=== PATIENT | male | born 1965 | race Caucasian/White ===

== ENCOUNTER 2018-11-25 17:25 | Emergency (ER) | payer MEDICARE, MEDICAID ==
[2018-11-25 19:17] VITALS: BP 148/82
--- NOTE | 2018-11-25 19:28 | UC ---
UC General HPI - HPI Summary HPI Summary: pt advised staff he fell while on a [place]mill [place] the [facility] earlier. he is c/o pain to R upper arm and shoulder. 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 - History of Current Complaint Chief Complaint: UCUpperExtremity Stated Complaint: RT ARM CONCERN S/P FALL Time Seen by Provider: 11/25/18 19:21 Hx Obtained From: Patient, Family/Dramatic Art Teacher Onset/Duration: Sudden Onset Pain Intensity: 8 Aggravating: abduction type movement. Associated Signs & Symptoms: Positive: Other - they deny any head, neck, back injury. - Allergy/Home Medications Allergies/Adverse Reactions: Allergies Allergy/AdvReac Type Severity Reaction Status Date / Time aspirin Allergy Unknown Unknown Verified 11/25/18 19:17 Reaction Details Home Medications: Home Medications Acetaminophen 2 tab PO Q4H PRN 11/25/18 [History Confirmed 11/25/18] Areds Eye Vitamin 1 tab BID 11/25/18 [History Confirmed 11/25/18] Ubidecarenone [Co Q-10] 100 mg PO DAILY 11/25/18 [History Confirmed 11/25/18] PMH/Surg Hx/FS Hx/Imm Hx - Additional Past Medical History Additional PMH: MR GI/ History: Gastroesophageal Reflux Psychological History: Anxiety - Surgical History Surgical History: None - Family History Known Family History: Positive: Non-Contributory - Social History Occupation: Disabled Alcohol Use: None Substance Use Type: None Smoking Status (MU): Light Every Day Tobacco Smoker Type: Cigarettes Amount Used/How Often: < 1/2 PPD Length of Time of Smoking/Using Tobacco: SEVERAL YRS Review of Systems All Other Systems Reviewed And Are Negative: No Constitutional: Negative: Fever Respiratory: Negative: Shortness Of Breath Gastrointestinal: Negative: Abdominal Pain Motor: Positive: Decreased ROM - RUE Musculoskeletal: Positive: Other: - R shoulder/upper arm pain. deny head, neck, back injury Neurological: Positive: Other - bead worker sewing denies AMS - Comments Additional Review of Systems Comments: LIMITED, HX MR Physical Exam Triage Information Reviewed: Yes Appearance: Well-Appearing Vital Signs: Initial Vital Signs Temp 98.4 F 11/25/18 19:10 Pulse 102 11/25/18 19:10 Resp 19 11/25/18 19:10 BP 148/82 11/25/18 19:10 Pulse Ox 100 11/25/18 19:10 Vital Signs Reviewed: Yes Eyes: Positive: Conjunctiva Clear ENT: Positive: Normal ENT inspection Neck: Positive: Supple, Nontender, No Lymphadenopathy, Other: - c-spine non tender Respiratory: Positive: Chest non-tender, Lungs clear, Normal breath sounds Cardiovascular: Positive: RRR, No Murmur Abdomen Description: Positive: Nontender Bowel Sounds: Positive: Present Musculoskeletal: Positive: Other: - Head, neck, back without deformity or tenderness. RUE without deformity. Tender over lateral shoulder and upper arm. shoulder has limited active and passive abduction due to pain. rest of arm non tender and rom intact. hand has gross s/v/m function. Neurological: Positive: Alert Psychological: Positive: Decreased Age Appropriate Behavior - due to MR but is unchanged from his baseline per bead worker sewing. Skin Exam: Normal Diagnostics - Radiology No standard instances Radiology Interpretation Completed By: ED Physician - R SHOULDER AND HUMERUS=NAD Course/Dx - Differential Dx - Multi-Symptom Differential Diagnoses: Other - NO RUE FX/DISLOCATION. LIMITED ABDUCTION AND PAIN WITH ATTEMPT THUS ROTATOR CUFF INJURY IS POSSIBLE. - Diagnoses Provider Diagnosis: Shoulder pain, right Discharge - Sign-Out/Discharge Documenting (check all that apply): Patient Departure All imaging exams completed and their final reports reviewed: No - Discharge Plan Condition: Stable Disposition: HOME Patient Education Materials: Rotator Cuff Injury (ED), Shoulder Pain (ED) Forms: *Gen. Provider Communication Referrals: Mark Brewster MD [Medical Doctor] - As Soon As Possible - Billing Disposition and Condition Condition: STABLE Disposition: Home - Attestation Statements Provider Attestation: Per institutional requirements, I have reviewed the chart, however, I was not consulted specifically or made aware of this patient by the midlevel provider. I did not personally evaluate, interact with , or disposition this patient.
--- NOTE | 2018-11-26 14:40 | UC ---
- EKG/XRAY/CT Xray Comments: wet read correct Course/Dx - Diagnoses Provider Diagnoses: Shoulder pain, right Discharge - Sign-Out/Discharge Documenting (check all that apply): Post-Discharge Follow Up All imaging exams completed and their final reports reviewed: Yes - Discharge Plan Condition: Stable Disposition: HOME Patient Education Materials: Rotator Cuff Injury (ED), Shoulder Pain (ED) Forms: *Gen. Provider Communication Referrals: Mark Brewster MD [Medical Doctor] - As Soon As Possible - Billing Disposition and Condition Condition: STABLE Disposition: Home
== END 2018-11-25 20:45 | disposition home or self-care (01) ==
LOC: UCCORT 17:25
DX: M25.511 Pain in right shoulder (principal); F17.210 Nicotine dependence, cigarettes, uncomplicated; Z88.8 Allergy status to other drugs, medicaments and biological substances
CPT/HCPCS: 99201; G0463

== ENCOUNTER 2018-12-02 19:07 | Emergency (ER) | payer MEDICARE, MEDICAID ==
[2018-12-02 20:48] VITALS: BP 132/82
--- NOTE | 2018-12-02 21:28 | UC ---
General HPI - HPI Summary HPI Summary: PER STAFF, PT SLID OUT OF BED LAST PM AND APPEARED UNINJURED. HE CONTINUED TO ACT FINE AFTER BUT THEN TODAY, C/O R SHOULDER PAIN. DATA INPUT CLERK NOTES NOT ALWAYS CONSISTENT IN THAT SOMETIMES FAVORS THE SHOULDER AND OTHER TIMES ACT NORMAL. - History of Current Complaint Chief Complaint: UCUpperExtremity Stated Complaint: RIGHT SHOULDER CONCERN Time Seen by Provider: 12/02/18 21:22 Hx Obtained From: Family/Order Checker Pain Intensity: 9 - Allergy/Home Medications Allergies/Adverse Reactions: Allergies Allergy/AdvReac Type Severity Reaction Status Date / Time aspirin Allergy Unknown Unknown Verified 12/02/18 20:39 Reaction Details lactose Allergy Unknown Verified 12/02/18 20:39 Reaction Details Home Medications: Home Medications Ubidecarenone [Coq10] 100 mg PO DAILY 12/02/18 [History Confirmed 12/02/18] PMH/Surg Hx/FS Hx/Imm Hx - Additional Past Medical History Additional PMH: MR GI/ History: Gastroesophageal Reflux Psychological History: Anxiety - Surgical History Surgical History: None - Family History Known Family History: Positive: Non-Contributory - Social History Occupation: Disabled Lives: Assisted Living Alcohol Use: None Substance Use Type: None Smoking Status (MU): Light Every Day Tobacco Smoker Type: Cigarettes Amount Used/How Often: < 1/2 PPD Length of Time of Smoking/Using Tobacco: SEVERAL YRS Review of Systems All Other Systems Reviewed And Are Negative: No Constitutional: Negative: Fever Skin: Negative: Rash Musculoskeletal: Positive: Decreased ROM, Other: - R SHOULDER PAIN Physical Exam Triage Information Reviewed: Yes Appearance: Well-Appearing Vital Signs: Initial Vital Signs Temp 99 F 12/02/18 20:43 Pulse 84 12/02/18 20:43 Resp 22 12/02/18 20:43 BP 132/82 12/02/18 20:43 Pulse Ox 100 12/02/18 20:43 Vital Signs Reviewed: Yes Eyes: Positive: Conjunctiva Clear ENT: Positive: Normal ENT inspection Neck: Positive: Supple, Nontender, No Lymphadenopathy, Other: - C-SPINE NON TENDER Respiratory: Positive: Chest non-tender, Lungs clear Cardiovascular: Positive: RRR Abdomen Description: Positive: Nontender Musculoskeletal: Positive: Other: - HEAD ATRAUMATIC. BACK IS NON TENDER. RUE: NO GROSS DEFORMITY, SWELLING OR DISCOLORATION. NON TENDER. PASSIVE FLEXION/ EXTENSION/ABDUCTION LIMITED DO TO C/O PAIN. HAND HAS GROSS S/V/M FUNCTION. Neurological: Positive: Alert Skin Exam: Normal Diagnostics - Radiology No standard instances Radiology Interpretation Completed By: Radiologist - R shoulder=scapular fracture Course/Dx - Course Course Of Treatment: HX, PE AND XRAY RESULTS D/W DR ADKINS, [facility] [place] [facility]. HE LOOKED AT THE XRAYS. HE REQUEST SLING AND F/U WITH HIM THIS SATURDAY IN [facility]. - Diagnoses Provider Diagnosis: Scapular fracture Discharge - Sign-Out/Discharge Documenting (check all that apply): Patient Departure All imaging exams completed and their final reports reviewed: No - Discharge Plan Condition: Stable Disposition: HOME Patient Education Materials: Scapular Fracture (ED) Forms: *Gen. Provider Communication Referrals: Cy Adkins MD [Medical Doctor] - Additional Instructions: CALL THE OFFICE OF DR ADKINS IN THE AM OF 12/03/18 AND MAKE A FOLLOW UP APPOINTMENT TO BE SEEN IN [facility] THIS COMING SATURDAY-PER DR ADKINS. LILIAN AT ALL TIMES - Billing Disposition and Condition Condition: STABLE Disposition: Home
--- NOTE | 2018-12-03 10:31 | UC ---
- Progress Note Progress Note: Patient Name: TROY STORY Medical Record#: [id number] Ordering Physician: Torie DUMONT Acct.#: [id number] : 1965 Age: 53 Sex: M Location: URGENT [facility] Exam Date: 12/02/182129 ADM Status: [facility] ER Order Information: SHOULDER RIGHT 2+ VWS Accession Number: [id number] CPT: 23243 Indication: RIGHT shoulder pain post fall out of bed. Comparison: November 25, 2018 Technique: Internal rotation AP, external rotation Grashey, scapular Y, axillary views RIGHT shoulder REPORT AND IMPRESSION: #. Fracture involving the neck and blade of the scapula new compared with the prior exam. No additional fracture evident. Normal acromioclavicular and glenohumeral joint alignment. Mild acromioclavicular and glenohumeral joint osteoarthritis. Soft tissue swelling about the axilla. R0 Preliminary Imaging Read R0 <Electronically signed by Jeffesron Sparrow MD in [place]> 12/03/18801 Dictated By: Jefferson Sparrow MD Dictated Date/Time: 12/03/18801 Transcribed Date/Time: 12/03/18 08 Copy to: CC:Torie DUMONT; Noemy Akbar MD; Nimesh Varghese MD Imaging - [facility] Imaging [facility] [address] [place] [address] ph [phone]) ph ([phone]) ph ([phone]) This report is only to be considered final once signed by the Provider(s) as displayed in the "<Electronically Signed by >" field (s). Absence of a signature indicates the report is in a draft status and still needs to be finalized. In the event this document was created by someone other than the signing Provider, the individual initiating the document will be listed in the "Entered by:" or "Dictated by:" [email or web address]. 1 of 1 Course/Dx - Diagnoses Provider Diagnoses: Scapular fracture Discharge - Sign-Out/Discharge Documenting (check all that apply): Post-Discharge Follow Up All imaging exams completed and their final reports reviewed: Yes - Discharge Plan Condition: Stable Disposition: HOME Patient Education Materials: Scapular Fracture (ED) Forms: *Gen. Provider Communication Referrals: Cy Andino MD [Medical Doctor] - Additional Instructions: CALL THE OFFICE OF DR ANDINO IN THE AM OF 12/03/18 AND MAKE A FOLLOW UP APPOINTMENT TO BE SEEN IN THE [facility] OFFICE THIS COMING SATURDAY-PER DR ANDINO. LILIAN AT ALL TIMES - Billing Disposition and Condition Condition: STABLE Disposition: Home
== END 2018-12-02 22:25 | disposition home or self-care (01) ==
LOC: UCCORT 19:07
DX: S42.191A Fracture of other part of scapula, right shoulder, initial encounter for closed fracture (principal); S42.151A Displaced fracture of neck of scapula, right shoulder, initial encounter for closed fracture; W06.XXXA Fall from bed, initial encounter; Y92.9 Unspecified place or not applicable; F17.210 Nicotine dependence, cigarettes, uncomplicated
CPT/HCPCS: 99212; G0463

== ENCOUNTER 2019-11-27 13:22 | Emergency (ER) | payer MEDICARE, MEDICAID ==
[2019-11-27 13:47] VITALS: BP 133/86
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
== END 2019-11-27 14:20 | disposition home or self-care (01) ==
LOC: UCCORT 13:22
DX: S50.811A Abrasion of right forearm, initial encounter (principal); S40.212A Abrasion of left shoulder, initial encounter; S10.91XA Abrasion of unspecified part of neck, initial encounter; S40.012A Contusion of left shoulder, initial encounter; Y04.0XXA Assault by unarmed brawl or fight, initial encounter; Y92.199 Unspecified place in other specified residential institution as the place of occurrence of the external cause; K21.9 Gastro-esophageal reflux disease without esophagitis; F32.9 Major depressive disorder, single episode, unspecified; Z79.899 Other long term (current) drug therapy; Z88.6 Allergy status to analgesic agent; Z91.011 Allergy to milk products; Z91.09 Other allergy status, other than to drugs and biological substances; F17.210 Nicotine dependence, cigarettes, uncomplicated
CPT/HCPCS: 99211; G0463